=== PATIENT | female | born 1955 | race Caucasian/White ===

== ENCOUNTER → 2017-02-25 | Outpatient (CLI) | payer BC ==
--- NOTE | 2017-02-25 15:30 | BD ---
EXAMINATION TYPE: MG DEXA axial skeleton. DATE OF EXAM: 02/25/2017 COMPARISON: NONE CLINICAL HISTORY: post menopausal Height: 5'6 Weight: 184 FRAX RISK QUESTIONS: Alcohol (3 or more units per day): no Family History (Parent hip fracture): no Glucocorticoids (More than 3mos): no (Ex: prednisone, prednisolone, methylprednisolone, dexamethasone, and hydrocortisone). History of Fracture in Adulthood: no Secondary Osteoporosis: 1. Type 1 Diabetes: no 2. Hyperthyroidism: no 3. Menopause before 45: no 4. Malnutrition: no 5. Chronic liver disease: no Rheumatoid Arthritis: no Current Tobacco Use: no RISK FACTORS HISTORY OF: Postmenopausal woman: MEDICATIONS: Thyroid Medications: Which medication: Levothyroxine How Lon years Additional Medications: high blood pressure, water pill Additional History: EXAM MEASUREMENTS: Bone mineral densitometry was performed using the [email or web address]. Bone mineral density as measured about the Lumbar spine is: ----- L1-L4(G/cm2): 1.087 T Score Values are as follows: ----- L2: -1.4 ----- L3: -0.8 ----- L4: 0.2 ----- L1-L4:-0.8 Bone mineral density about the R hip (g/cm2): 0.877 Bone mineral density about the L hip (g/cm2): 0.819 T Score values are as follows: -----R Neck: -1.2 -----L Neck: -1.6 -----R Total: -0.1 -----L Total: -0.6 IMPRESSION: Osteopenia (T Score between -2.5 and -1 as noted by T score values: At the femoral neck level in both hips and 2 consecutive levels in the low back. There is slightly increased risk of fracture and the patient may be considered for treatment. Re-Screen 2-5 years. NOTE: T-SCORE=SD OF THE YOUNG ADULT MEAN.
--- NOTE | 2017-02-25 16:46 | WWHP ---
[facility] - HISTORY AND PHYSICAL CHIEF COMPLAINT: The patient is here for her routine gynecologic exam and mammogram. HPI: This is a 61-year-old G4, P3-0-1-3 with an LMP of 2006. The patient is without gynecologic complaints and denies any postmenopausal bleeding. PAST MEDICAL HISTORY: Hypothyroidism, hypertension, gastroesophageal reflux disease and seasonal allergies. MEDICATIONS: Highs are 25/100 one daily, levothyroxine 125 mcg daily, Zantac 150 mg b.i.d. ALLERGIES: To PENICILLIN, which caused swelling and pruritus. PAST SURGICAL HISTORY: section x3. D and C in the past, colonoscopy 2016 and this was her third one. She has also had several upper endoscopies in the past. 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 SOCIAL HISTORY: She quit smoking in her 20s. She denies alcohol and drug use. She has been since 1979 and has been caring for her father in law who lives with her. She also watches 2 of her grand children 3 days a week. REVIEW OF SYSTEMS: She has lost about 13 pounds over the last year. She denies respiratory, cardiac or GI problems. PHYSICAL EXAM: Blood pressure 110/63, height 5 feet 6 inches, weight 186 pounds, temperature 96.1, pulse 83. This is a well-developed, well-nourished, white female, who is alert and oriented x3, in no acute distress. HEENT is within normal limits. Neck supple without mass or thyromegaly. Chest and lungs clear to auscultation. HEART: Regular rate and rhythm. Breasts are without mass or discharge. Axillary exam is negative for adenopathy. Back negative for CVA tenderness. ABDOMEN: Soft, nontender, without palpable masses. Pelvic exam normal external genitalia with mild atrophy. Cervix and vagina reveals mild to moderate atrophy without lesions. Cervix is nearly flush with the back of the vagina consistent with atrophy. There is no unusual discharge. There is a small grade 2 rectocele which is stable. The uterus is mid position, nongravid size and nontender. There are no palpable adnexal masses or tenderness. Rectovaginal exam is negative for mass or tenderness and is negative for occult blood. Extremities nontender. IMPRESSION: 61-year-old menopausal female, female with an asymptomatic stable grade 2 rectocele. PLAN: 1. Pap smear was deferred since she had a normal 1 last year. 2. Self breast examination was discussed. 3. Mammogram will be done today. 4. Osteoporosis prevention was discussed. Bone density screening will be done today. 5. She will return in 1 year. MMJOSHUAL / IJN: [id number] /
--- NOTE | 2017-02-27 08:48 | MM ---
Reason for exam: screening (asymptomatic). Last mammogram was performed 1 year and 7 months ago. History: Patient is postmenopausal. Physical Findings: A clinical breast exam by your physician is recommended on an annual basis and results should be correlated with mammographic findings. MG Screening Mammo w CAD Bilateral CC and MLO view(s) were taken. Prior study comparison: August 09, 2015, bilateral MG screening mammo w CAD. April 25, 2014, bilateral MG screening mammo w CAD. There are scattered fibroglandular densities. No significant changes when compared with prior studies. ASSESSMENT: Negative, BI-RAD 1 RECOMMENDATION: Routine screening mammogram of both breasts in 1 year.
== END | disposition home or self-care (01) ==
LOC: WWCWWP 13:46
PROVIDERS: ATTEND Obstetrics & Gynecology
DX: Z12.31 Encounter for screening mammogram for malignant neoplasm of breast (principal); M85.89 Other specified disorders of bone density and structure, multiple sites; Z78.0 Asymptomatic menopausal state
CPT/HCPCS: 77080; G0202

== ENCOUNTER → 2018-06-30 | Outpatient (CLI) | payer BC ==
[2018-06-30 12:54] VITALS: BP 128/81; PULSE 76; RESP 18; TEMP 97.7; BMI 30.3
--- NOTE | 2018-06-30 13:22 | P.HPOB ---
History of Present Illness H&P Date: 06/30/18 Chief Complaint: The patient is here for her routine gynecologic exam and mammogram. This is a 63-year-old with an LMP of 2006. The patient is without gynecologic complaints and denies any postmenopausal bleeding. Review of Systems She has gained 2 pounds over the last year. Respiratory: she is getting over a sinus infection and has been taking antibiotics for this. She denies cardiac or G.I. problems. Past Medical History Past Medical History: GERD/Reflux, Hypertension, Thyroid Disorder (Hypothyroid) Additional Past Medical History / Comment(s): Seasonal allergies. Osteopenia. PAST PHARMACY CUSTOMER CARE SPECIALIST HISTORY: She has no history of STDs. History of Any Multi-Drug Resistant Organisms: None Reported Past Surgical History: Section (x3) Additional Past Surgical History / Comment(s): C-SEC X 3. D&C X 2. Colonoscopy 2016 (3rd). Multiple upper endoscopies. Past Anesthesia/Blood Transfusion Reactions: Motion Sickness Past Psychological History: No Psychological Hx Reported Smoking Status: Former smoker (Quit in her 20s) Past Alcohol Use History: None Reported Additional Past Alcohol Use History / Comment(s): QUIT SMOKING 34 YRS AGO Past Drug Use History: None Reported Additional History: She has been since 1979. She does care for her hisczc-ck-rap who lives with her. - Past Family History Mother Family Medical History: No Reported History, Neurologic Disorder (Multiple sclerosis) Father Family Medical History: Congestive Heart Failure (CHF) Medications and Allergies Home Medications Medication Instructions Recorded Confirmed Type Omeprazole [PriLOSEC] 20 mg PO AC-BRKFST 06/20/14 06/30/18 History Cetirizine HCl [Zyrtec] 10 mg PO DAILY 03/20/16 06/30/18 History Levothyroxine Sodium 125 mcg PO DAILY 03/20/16 06/30/18 History Losartan/Hydrochlorothiazide 1 each PO DAILY 03/20/16 06/30/18 History [Losartan-Hctz 100-25 mg Tab] Allergies Allergy/AdvReac Type Severity Reaction Status Date / Time Penicillins Allergy Itching Verified 06/30/18 12:55 Exam Vital Signs Temp Pulse Resp BP Pulse Ox 06/30/18 12:43 97.7 F 76 18 128/81 98 Intake and Output 06/29/18 06/30/18 06/30/18 22:59 06:59 14:59 Other: Weight 85.275 kg Height 5'6", weight 188 pounds, BMI 30.3. This is a well-developed well-nourished white female who is alert and oriented times 3 in no acute distress. HEENT: Within normal limits. NECK: Supple without mass or thyromegaly. CHEST AND LUNGS: Clear to auscultation. HEART: Regular rate and rhythm. BREASTS: Are without mass or discharge. AXILLARY EXAM: Negative for adenopathy. BACK: Negative for CVA tenderness. ABDOMEN: Soft, nontender, without palpable masses. PELVIC EXAM: Normal external genitalia with mild atrophy. Cervix and vagina appear normal with mild to moderate atrophy. There is no unusual discharge. There is a stable grade 2 rectocele. The uterus is midposition, nongravid size and nontender. There are no palpable adnexal masses or tenderness. RECTAL EXAM: rectovaginal exam is negative for mass or tenderness and is negative for occult blood and does confirm a small rectocele. EXTREMITIES: Nontender. IMPRESSION: 1. 63 year old menopausal female with stable grade 2 asymptomatic rectocele. Otherwise unremarkable gynecologic exam. 2. History of osteopenia. PLAN: 1. Pap smear was performed. 2. Self breast awareness was discussed with the patient. 3. Screening mammogram will be done today. 4. Osteoporosis prevention was discussed. I have stressed the importance of adequate calcium, vitamin D and regular exercise. Recommended amounts of calcium and vitamin D were also discussed. Her last bone density test was done on 02/25/2017. We will plan on repeating this in one year. 5. She will return in one year.
--- NOTE | 2018-07-01 10:06 | MM ---
Reason for exam: screening (asymptomatic). Last mammogram was performed 1 year and 4 months ago. History: Patient is postmenopausal. Physical Findings: A clinical breast exam by your physician is recommended on an annual basis and results should be correlated with mammographic findings. MG Screening Mammo w CAD Bilateral CC and MLO view(s) were taken. Prior study comparison: February 25, 2017, bilateral MG screening mammo w CAD. August 09, 2015, bilateral MG screening mammo w CAD. There are scattered fibroglandular densities. There is no discrete abnormality. No significant changes when compared with prior studies. ASSESSMENT: Negative, BI-RAD 1 RECOMMENDATION: Routine screening mammogram of both breasts in 1 year.
== END | disposition home or self-care (01) ==
LOC: WWCWWP 12:28
PROVIDERS: ATTEND Obstetrics & Gynecology
DX: Z12.31 Encounter for screening mammogram for malignant neoplasm of breast (principal)
CPT/HCPCS: 77067

== ENCOUNTER → 2021-03-30 | Outpatient (CLI) | payer MEDICARE, BC ==
--- NOTE | 2021-03-30 14:54 | US ---
EXAMINATION TYPE: US carotid duplex BILAT DATE OF EXAM: 03/30/2021 COMPARISON: NONE CLINICAL HISTORY: R42 DIZZINESS,I10 ESSENTIAL HYPORTENSION. HTN, DM EXAM MEASUREMENTS: RIGHT: Peak Systolic Velocity (PSV) cm/sec ----- Right CCA: 77.9 ----- Right ICA: 107.4 ----- Right ECA: 129.2 ICA/CCA ratio: 1.4 RIGHT: End Diastole cm/sec ----- Right CCA: 27.0 ----- Right ICA: 40.5 ----- Right ECA: 27.5 LEFT: Peak Systolic Velocity (PSV) cm/sec ----- Left CCA: 85.6 ----- Left ICA: 121.0 ----- Left ECA: 111.3 ICA/CCA ratio: 1.4 LEFT: End Diastole cm/sec ----- Left CCA: 26.3 ----- Left ICA: 46.7 ----- Left ECA: 24.1 VERTEBRALS (direction of flow): Right Vertebral: Antegrade Left Vertebral: Antegrade Rhythm: Normal Mild atherosclerotic IMPRESSION: No sonographic evidence for hemodynamically significant stenosis bilateral carotid arteries. Criteria for Assigning % of Stenosis / Diameter reduction (Estimation based on the indirect measurements of the internal carotid artery velocities (ICA PSV). 1. Normal (no stenosis)=ICA PSV < 125 cm/s: ratio < 2.0: ICA EDV<40 cm/s. 2. Less than 50% stenosis=ICA PSV < 125 cm/s: ratio < 2.0: ICA EDV<40 cm/s. 3. 50 to 69% stenosis=ICA PSV of 125 to 230 cm/s: ration 2.0 ? 4.0: ICA EDV 40-100 cm/s. 4. Greater than 70% stenosis to near occlusion= ICA PSV > 230 cm/s: ratio > 4.0: ICA EDV > 100 cm/s. 5. Near occlusion= ICA PSV velocities may be low or undetectable: variable ratio and ICA EDV. 6. Total occlusion=unable to detect flow.
--- NOTE | 2021-03-30 18:00 | ECHOF ---
Referral Reason:I10 HTN, R42 Dizziness/giddiness MEASUREMENTS -------- HEIGHT: 167.6 cm WEIGHT: 87.1 kg BP: RVIDd: 3.6 cm (< 3.3) IVSd: 1.2 cm (0.6 - 1.1) LVIDd: 2.9 cm (3.9 - 5.3) LVPWd: 1.6 cm (0.6 - 1.1) IVSs: 2.0 cm LVIDs: 1.8 cm LVPWs: 2.3 cm LAESV Index (A-L): 29.42 ml/m Ao Diam: 3.0 cm (2.0 - 3.7) AV Cusp: 1.5 cm (1.5 - 2.6) LA Diam: 3.3 cm (2.7 - 3.8) MV EXCURSION: 12.842 mm (> 18.000) MV EF SLOPE: 34 mm/s (70 - 150) EPSS: 0.3 cm MV E Jonathon: 1.16 m/s MV DecT: 198 ms MV A Jonathon: 1.42 m/s MV E/A Ratio: 0.81 AV maxP.97 mmHg AV meanP.18 mmHg RAP: 5.00 mmHg RVSP: 44.85 mmHg FINDINGS -------- Sinus rhythm. This was a technically adequate study. The left ventricular size is normal. There is moderate concentric left ventricular hypertrophy. O verall left ventricular systolic function is normal with, an EF between 55 - 60 %. Normal LAP Grad e 1 Diastolic Dysfunction. The right ventricle is mildly enlarged. Normal LA size by volume 22+/-6 ml/m2. The right atrial size is normal. There is mild aortic valve sclerosis. Peak/mean gradient across the Aortic Valve is 18.97mmHg / 10. 18mmHg. Moderate mitral annular calcification present. Mild mitral regurgitation is present. The tricuspid valve appears structurally normal. Mild tricuspid regurgitation present. There is m ild pulmonary hypertension. The right ventricular systolic pressure, as measured by Doppler, is 44. 85mmHg. There is no pulmonic regurgitation present. The aortic root size is normal. Normal inferior vena cava with normal inspiratory collapse consistent with estimated right atrial pre ssure of 5 mmHg. There is no pericardial effusion. CONCLUSIONS -------- 1. There is moderate concentric left ventricular hypertrophy. 2. Overall left ventricular systolic function is normal with, an EF between 55 - 60 %. 3. Normal LAP Grade 1 Diastolic Dysfunction. 4. The right ventricle is mildly enlarged. 5. Normal LA size by volume 22+/-6 ml/m2. 6. There is mild aortic valve sclerosis. 7. Peak/mean gradient across the Aortic Valve is 18.97mmHg / 10.18mmHg. 8. Moderate mitral annular calcification present. 9. Mild mitral regurgitation is present. 10. Mild tricuspid regurgitation present. 11. There is mild pulmonary hypertension. 12. There is no pericardial effusion. [employer] SUPERVISOR: Chloe Osei RDCS
== END | disposition home or self-care (01) ==
LOC: RADECHMAIN 13:32
PROVIDERS: ATTEND Internal Medicine
DX: I08.3 Combined rheumatic disorders of mitral, aortic and tricuspid valves (principal); R42 Dizziness and giddiness; I27.20 Pulmonary hypertension, unspecified; I10 Essential (primary) hypertension; E11.9 Type 2 diabetes mellitus without complications
CPT/HCPCS: 93306; 93880

== ENCOUNTER → 2021-09-19 | Outpatient (CLI) | payer MEDICARE, BC ==
[2021-09-19 10:03] VITALS: BP 135/84; PULSE 75; RESP 17; TEMP 98.2
--- NOTE | 2021-09-19 10:48 | P.HPOB ---
History of Present Illness H&P Date: 09/19/21 Chief Complaint: The patient is here for her routine gynecologic exam and ma mmogram. This is a 66-year-old 013 with an LMP of 2006. The patient is without gynecologic complaints and denies any postmenopausal bleeding. Review of Systems The patient has gained 4 pounds over the last 3 years. She denies respiratory, cardiac, or G.I. problems. Past Medical History Past Medical History: GERD/Reflux, Hypertension, Thyroid Disorder Additional Past Medical History / Comment(s): Seasonal allergies. Osteopenia. 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 History of Any Multi-Drug Resistant Organisms: None Reported Past Surgical History: Section Additional Past Surgical History / Comment(s): C-SEC X 3. D&C X 2. Colonoscopy 2016 (next after 10y). Multiple upper endoscopies. Past Anesthesia/Blood Transfusion Reactions: Motion Sickness Past Psychological History: No Psychological Hx Reported Smoking Status: Former smoker Past Alcohol Use History: Rare Additional Past Alcohol Use History / Comment(s): QUIT SMOKING in her 20s. Past Drug Use History: None Reported Additional History: She has been since 1979. She is retired. - Past Family History Mother Family Medical History: No Reported History, Neurologic Disorder Father Family Medical History: Congestive Heart Failure (CHF) Medications and Allergies Home Medications Medication Instructions Recorded Confirmed Type Omeprazole [PriLOSEC] 20 mg PO AC-BRKFST 06/20/14 09/19/21 History Cetirizine HCl [Zyrtec] 10 mg PO DAILY 03/20/16 09/19/21 History Levothyroxine Sodium 125 mcg PO DAILY 03/20/16 09/19/21 History Losartan/Hydrochlorothiazide 1 each PO DAILY 03/20/16 09/19/21 History [Losartan-Hctz 100-25 mg Tab] Allergies Allergy/AdvReac Type Severity Reaction Status Date / Time Penicillins Allergy Itching Verified 09/19/21 09:28 Exam Vital Signs Temp Pulse Resp BP Pulse Ox 09/19/21 10:00 98.2 F 75 17 135/84 98 Intake and Output 09/18/21 09/19/21 09/19/21 22:59 06:59 14:59 Other: Weight 87.09 kg Height 5 feet 5 inches, weight 192 pounds, BMI 32.0. This is a well-developed well-nourished white female who is alert and oriented times 3 in no acute distress. HEENT: Within normal limits. NECK: Supple without mass or thyromegaly. CHEST AND LUNGS: Clear to auscultation. HEART: Regular rate and rhythm. BREASTS: Are without mass or discharge. There is a benign-appearing mole on the left breast areola at the 2 o'clock position measuring 8 x 5 mm. AXILLARY EXAM: Negative for adenopathy. BACK: Negative for CVA tenderness. ABDOMEN: Soft, nontender, without palpable masses. There is a low vertical skin incision which has slight pallor in the center of the scar down the midline. The patient states it has been feeling a little irritated when things rubbed against it. PELVIC EXAM: External genitalia reveals mild atrophy with a benign-appearing r ight labia majora inclusion cyst measuring approximate 5 mm which is nontender and noninflamed. Cervix and vagina appear normal with mild atrophy. There is no unusual discharge. There is a stable grade 1-2 rectocele. The uterus is midposition, nongravid size and nontender. There are no palpable adnexal masses or tenderness. RECTAL EXAM: Rectovaginal exam is negative for mass or tenderness and is negative for occult blood. EXTREMITIES: Nontender. IMPRESSION: 1. 66-year-old menopausal female with stable asymptomatic grade 1-2 rectocele. 2. History of osteopenia. PLAN: 1. Pap smear was performed. If this is negative, Pap smears will be discontinued. 2. Self breast awareness was discussed with the patient. We have also discussed symptoms associated with inflammatory breast cancer. 3. Screening mammogram will be done today. 4. Osteoporosis prevention was discussed. I have stressed the importance of adequate calcium, vitamin D and regular exercise. Recommended amounts of calc ium and vitamin D were also discussed. I recommended bone density test since her last one was in 2016. The order slip was given to the patient for this. 5. She has completed her Covid vaccination series and has received a booster. 6. She was advised to return in one year for her annual well woman exam.
--- NOTE | 2021-09-21 10:44 | MM ---
Reason for exam: screening (asymptomatic). Last mammogram was performed 3 years and 3 months ago. History: Patient is postmenopausal. Physical Findings: A clinical breast exam by your physician is recommended on an annual basis and results should be correlated with mammographic findings. MG Screening Mammo w CAD Bilateral CC and MLO view(s) were taken. Prior study comparison: June 30, 2018, bilateral MG screening mammo w CAD. February 25, 2017, bilateral MG screening mammo w CAD. There are scattered fibroglandular densities. There is no discrete abnormality. No significant changes when compared with prior studies. ASSESSMENT: Negative, BI-RAD 1 RECOMMENDATION: Routine screening mammogram of both breasts in 1 year.
== END ==
LOC: WWCWWP 09:17
PROVIDERS: ATTEND Obstetrics & Gynecology
DX: Z12.31 Encounter for screening mammogram for malignant neoplasm of breast (principal); Z01.419 Encounter for gynecological examination (general) (routine) without abnormal findings; I10 Essential (primary) hypertension; Z87.39 Personal history of other diseases of the musculoskeletal system and connective tissue; Z87.891 Personal history of nicotine dependence; Z78.0 Asymptomatic menopausal state; Z88.0 Allergy status to penicillin; K21.9 Gastro-esophageal reflux disease without esophagitis
CPT/HCPCS: 77067

== ENCOUNTER → 2021-10-30 | Outpatient (CLI) | payer MEDICARE, BC ==
--- NOTE | 2021-10-30 19:05 | BD ---
EXAMINATION TYPE: Axial Bone Density DATE OF EXAM: 10/30/2021 CLINICAL HISTORY: 66 years year old Female. ICD-10 CODE: Z78.0 Post menopausal status Height: 5 fFT 5 IN Weight: 192 FRAX RISK QUESTIONS: Alcohol (3 or more units per day): NO Family History (Parent hip fracture): NO Glucocorticoids (More than 3mos): NO (Ex: prednisone, prednisolone, methylprednisolone, dexamethasone, and hydrocortisone). History of Fracture in Adulthood: NO Secondary Osteoporosis: 1. Type 1 Diabetes: NO 2. Hyperthyroidism: NO 3. Menopause before 45: NO 4. Malnutrition: NO 5. Chronic liver disease: NO Rheumatoid Arthritis: NO Current Tobacco Use: NO RISK FACTORS HISTORY OF: Surgery to Spine/Hip(right/left)/Wrist (right/left): NO Family History of Osteoporosis: YES Active: YES Diet low in dairy products/other sources of calcium: NO Postmenopausal woman: YES Take estrogen and/or progesterone medications: NO Lost more than 2 inches in height since high school: YES Frequent falls: NO Poor Health: GOOD Hyperparathyroidism: NO Adrenal Insufficiency: NO MEDICATIONS: Thyroid Medications: YES Which medication: LEVOTHYROXINE How Lon YEARS Additional Medications: LEVOTHYROXINE, LOSARTAN, HYZAAR, PRILOSEC Additional History: EXAM MEASUREMENTS: Bone mineral densitometry was performed using the [employer] System. Bone mineral density as measured about the Lumbar spine is: ----- L1-L4(G/cm2): 1.106 T Score Values are as follows: ----- L1: -1.7 ----- L2: -1.7 ----- L3: 0.1 ----- L4: 0.6 ----- L1-L4: -0.6 Bone mineral density has: INCREASED 3.2 % since study of: 2017 Bone mineral density about the R hip (g/cm2): 0.889 Bone mineral density about the L hip (g/cm2): 0.802 T Score values are as follows: -----R Neck: -1.1 -----L Neck: -1.7 -----R Total: -0.7 -----L Total: -0.8 Bone mineral density has: DECREASED -4.7 % since study of: 2017 FRAX%s: The graph provided illustrates a 3.8 % chance for a major osteoporotic fx and a 0.8 % chance for the hips probability for fx in 10 years time. IMPRESSION: Osteopenia (T Score between -2.5 and -1). There is slightly increased risk of fracture and the patient may be considered for treatment. Re-Screen 2-5 years. NOTE: T-SCORE=SD OF THE YOUNG ADULT MEAN.
== END | disposition home or self-care (01) ==
LOC: RADBDWWP 09:53
PROVIDERS: ATTEND Obstetrics & Gynecology
DX: Z13.820 Encounter for screening for osteoporosis (principal); M85.89 Other specified disorders of bone density and structure, multiple sites; Z78.0 Asymptomatic menopausal state
CPT/HCPCS: 77080

== ENCOUNTER → 2023-09-30 | Outpatient (CLI) | payer MEDICARE, BC ==
[2023-09-30 13:06] VITALS: BP 129/76; PULSE 75; RESP 16; TEMP 98.2
--- NOTE | 2023-09-30 13:28 | P.HPOB ---
History of Present Illness H&P Date: 09/30/23 Chief Complaint: The patient is here for her routine gynecologic exam and ma mmogram. This is a 68-year-old -0-1-3 with an LMP of 2006. The patient is without gynecologic complaints. She denies any problems related to her known rectocele. Review of Systems The patient has lost 6 pounds over the last year. She denies respiratory, cardiac, or G.I. problems. Past Medical History Past Medical History: GERD/Reflux, Hypertension, Thyroid Disorder Additional Past Medical History / Comment(s): Seasonal allergies. Osteopenia. 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 History of Any Multi-Drug Resistant Organisms: None Reported Past Surgical History: Section Additional Past Surgical History / Comment(s): C-SEC X 3. D&C X 2. Colonoscopy with upper endoscopy 2021 (next [id number]). Multiple upper endoscopies. Past Anesthesia/Blood Transfusion Reactions: Motion Sickness Past Psychological History: No Psychological Hx Reported Smoking Status: Former smoker Past Alcohol Use History: Rare (About 2 drinks per year.) Additional Past Alcohol Use History / Comment(s): QUIT SMOKING in her 20s. Past Drug Use History: None Reported Additional History: She has been since 1979 and is sexually active. She is retired. - Past Family History Mother Family Medical History: No Reported History, Neurologic Disorder Father Family Medical History: Congestive Heart Failure (CHF) Medications and Allergies Home Medications Medication Instructions Recorded Confirmed Type Omeprazole [PriLOSEC] 20 mg PO AC-BRKFST 06/20/14 09/30/23 History Cetirizine HCl [Zyrtec] 10 mg PO DAILY 03/20/16 09/30/23 History Levothyroxine Sodium 125 mcg PO DAILY 03/20/16 09/30/23 History Losartan/Hydrochlorothiazide 1 each PO DAILY 03/20/16 09/30/23 History [Losartan-Hctz 100-25 mg Tab] Allergies Allergy/AdvReac Type Severity Reaction Status Date / Time Penicillins Allergy Itching Verified 09/30/23 13:02 Exam Vital Signs Temp Pulse Resp BP Pulse Ox 09/30/23 13:03 98.2 F 75 16 129/76 97 Intake and Output 09/29/23 09/30/23 09/30/23 22:59 06:59 14:59 Other: Weight 82.1 kg Height 5 feet 5 inches, weight 181 pounds, BMI 30.1. This is a well-developed well-nourished white female who is alert and oriented times 3 in no acute distress. HEENT: Within normal limits. NECK: Supple without mass or thyromegaly. CHEST AND LUNGS: Clear to auscultation. HEART: Regular rate and rhythm. BREASTS: Are without mass or discharge. AXILLARY EXAM: Negative for adenopathy. BACK: Negative for CVA tenderness. ABDOMEN: Soft, nontender, without palpable masses. PELVIC EXAM: Normal external genitalia with mild atrophy. Cervix and vagina appear normal with mild atrophy. There is no unusual discharge. There is a stable grade 2 rectocele. The overlying mucosa is without ulceration or thickening. The uterus is midposition, nongravid size and nontender. There are no palpable adnexal masses or tenderness. RECTAL EXAM: Rectovaginal exam is negative for mass or tenderness and is negative for occult blood. EXTREMITIES: Nontender. IMPRESSION: 1. 68-year-old menopausal female with stable asymptomatic grade 2 rectocele. 2. History of osteopenia. PLAN: 1. Pap smears have been discontinued. 2. Self breast awareness was discussed with the patient. We have also discussed symptoms associated with inflammatory breast cancer. 3. Screening mammogram was done today. 4. Osteoporosis prevention was discussed. I have stressed the importance of adequate calcium, vitamin D and regular exercise. Recommended amounts of calcium and vitamin D were also discussed. We will plan on repeating the bone density test in 1 year. 5. She was advised to return in one year for her annual well woman exam.
--- NOTE | 2023-10-01 18:54 | MM ---
Reason for Exam: Screening (asymptomatic). Last screening mammogram was performed 12 month(s) ago. Patient History: Menarche at age 12. First Full-Term at age 17. Postmenopausal. Patient has history of breast feeding. Risk Values: Razia 5 year model risk: 1.2%. NCI Lifetime model risk: 4.0%. Prior Study Comparison: 06/30/2018 Bilateral Screening Mammogram, [facility]. 09/19/2021 Bilateral Screening Mammogram, [facility]. 09/24/2022 Bilateral MG screening mammo w CAD, [facility]. Tissue Density: There are scattered areas of fibroglandular density. Findings: Analyzed By CAD. There is no suspicious group of microcalcifications or new suspicious mass in either breast. Overall Assessment: Negative, BI-RAD 1 Management: Screening Mammogram of both breasts in 1 year. . Patient should continue monthly self-breast exams. A clinical breast exam by your physician is recommended on an annual basis. This exam should not preclude additional follow-up of suspicious palpable abnormalities. Note on Razia scores and lifetime risk: 1. A Razia score greater than 3% is considered moderate risk. If this is the case, consider specialist referral to assess eligibility for a risk reducing agent. 2. If overall lifetime risk for the development of breast cancer is 20% or higher, the patient may qualify for future screening with alternating mammogram and breast MRI. Electronically signed and approved by: Estephanie Torrez M.D. Radiologist
== END ==
LOC: WWCWWP 12:23
PROVIDERS: ATTEND Obstetrics & Gynecology
DX: Z12.31 Encounter for screening mammogram for malignant neoplasm of breast (principal); N81.6 Rectocele; M85.80 Other specified disorders of bone density and structure, unspecified site; Z78.0 Asymptomatic menopausal state; Z88.0 Allergy status to penicillin; Z87.891 Personal history of nicotine dependence
CPT/HCPCS: 77063; 77067

== ENCOUNTER → 2024-10-26 | Outpatient (CLI) | payer MEDICARE, BC ==
--- NOTE | 2024-10-26 15:01 | BD ---
EXAMINATION TYPE: Axial Bone Density DATE OF EXAM: 10/26/2024 CLINICAL HISTORY: 69 years old Female. ICD-10 CODE: Z78.0 POSTMENOPAUSAL , Additional History: Height: 5 ft 5 in Weight: 180 FRAX RISK QUESTIONS: Alcohol (3 or more units per day): no Family History (Parent hip fracture): no Glucocorticoids (More than 3mos): no (Ex: prednisone, prednisolone, methylprednisolone, dexamethasone, and hydrocortisone). History of Fracture in Adulthood: yes Secondary Osteoporosis: 1. Type 1 Diabetes: no 2. Hyperthyroidism: no 3. Menopause before 45: no 4. Malnutrition: no 5. Chronic liver disease: no Rheumatoid Arthritis: no Current Tobacco Use: no RISK FACTORS HISTORY OF: Surgery to Spine/Hip(right/left)/Wrist (right/left): no MEDICATIONS: Thyroid Medications: yes Which medication: levothyroxine How Lon years Osteoporosis Medications: none EXAM MEASUREMENTS: Bone mineral densitometry was performed using the [employer] System. Bone mineral density as measured about the Lumbar spine is: ----- L1-L4(G/cm2): 1.067 T Score Values are as follows: ----- L1: -1.8 ----- L2: -1.7 ----- L3: -0.5 ----- L4: 0.0 ----- L1-L4: -0.9 Z Score Values are as follows: ----- L1: -0.7 ----- L2: -0.6 ----- L3: 0.6 ----- L4: 1.1 ----- L1-L4: 0.2 Bone mineral density has: decreased -3.5 % since study of: 2021 Bone mineral density about the R hip (g/cm2): 0.890 Bone mineral density about the L hip (g/cm2): 0.821 T Score values are as follows: -----R Neck: -1.1 -----L Neck: -1.6 -----R Total: -0.5 -----L Total: -1.1 Z Score values are as follows: -----R Neck: 0.2 -----L Neck: -0.3 -----R Total: 0.5 -----L Total: -0.1 Bone mineral density has: decreased -1.1 % since study of: 2021 FRAX%s: The graph provided illustrates a 15.5 % chance for a major osteoporotic fx and a 2.2 % chance for the hips probability for fx in 10 years time. IMPRESSION: Osteopenia (T Score between -2.5 and -1). There is slightly increased risk of fracture and the patient may be considered for treatment. Re-Screen 2-5 years. NOTE: T-SCORE=SD OF THE YOUNG ADULT MEAN. [facility], , 10/26/2024 2:59 PM
[2024-10-26 15:09] VITALS: BP 145/86; PULSE 62; RESP 17; TEMP 98.3
--- NOTE | 2024-10-26 15:13 | MM ---
Reason for Exam: Screening (asymptomatic). Last mammogram was performed 1 year(s) and 1 month(s) ago. Patient History: Menarche at age 12. First Full-Term at age 17. Postmenopausal. Patient has history of breast feeding. Risk Values: Razia 5 year model risk: 1.2%. NCI Lifetime model risk: 3.9%. Prior Study Comparison: 09/19/2021 Bilateral Screening Mammogram, [facility]. 09/24/2022 Bilateral MG screening mammo w CAD, [facility]. 09/30/2023 Bilateral MG 3D screening mammo w/cad, [facility]. Tissue Density: There are scattered areas of fibroglandular density. Findings: Analyzed By CAD. Benign-appearing vascular calcification bilaterally is redemonstrated. There is no suspicious new group of microcalcifications or new suspicious mass in either breast. Overall Assessment: Negative, BI-RAD 1 Management: Screening Mammogram of both breasts in 1 year. . Patient should continue monthly self-breast exams. A clinical breast exam by your physician is recommended on an annual basis. This exam should not preclude additional follow-up of suspicious palpable abnormalities. Note on Razia scores and lifetime risk: 1. A Razia score greater than 3% is considered moderate risk. If this is the case, consider specialist referral to assess eligibility for a risk reducing agent. 2. If overall lifetime risk for the development of breast cancer is 20% or higher, the patient may qualify for future screening with alternating mammogram and breast MRI. [facility], , 10/26/2024 3:09 PM. Electronically signed and approved by: Jasen Stephenson M.D.
--- NOTE | 2024-10-26 16:14 | P.HPOB ---
History of Present Illness H&P Date: 10/26/24 Chief Complaint: The patient is here for her routine gynecologic exam and ma mmogram. This is a 69-year-old -0-1-3 with an LMP of 2006. The patient is without gynecologic complaints. She denies any significant Angelita problems with her known rectocele. She states she has been using her 's blood pressure cuff which indicates she has some irregular beats. She denies any faint feeling or lightheadedness. She also denies feeling palpitations. Review of Systems Her weight has been stable. She denies respiratory problems cardiac: Her blood pressure cuff has read that she is having irregular beats, but she denies significant symptoms from this GI: Occasional difficulty swallowing. Past Medical History Past Medical History: GERD/Reflux, Hypertension, Thyroid Disorder Additional Past Medical History / Comment(s): Seasonal allergies. Osteopenia. 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 History of Any Multi-Drug Resistant Organisms: None Reported Past Surgical History: Section Additional Past Surgical History / Comment(s): C-SEC X 3. D&C X 2. Colonoscopy with upper endoscopy 2021 (next [id number]). Multiple upper endoscopies. Past Anesthesia/Blood Transfusion Reactions: Motion Sickness Past Psychological History: No Psychological Hx Reported Smoking Status: Former smoker Past Alcohol Use History: Rare (Drinks per year.) Additional Past Alcohol Use History / Comment(s): QUIT SMOKING in her 20s. Past Drug Use History: None Reported Additional History: She has been since 1979 and is infrequently sexually active. She is retired. - Past Family History Mother Family Medical History: No Reported History, Neurologic Disorder Father Family Medical History: Congestive Heart Failure (CHF) Medications and Allergies Home Medications Medication Instructions Recorded Confirmed Type Omeprazole [PriLOSEC] 20 mg PO AC-BRKFST 06/20/14 10/26/24 History Cetirizine HCl [Zyrtec] 10 mg PO DAILY 03/20/16 10/26/24 History Levothyroxine Sodium 125 mcg PO DAILY 03/20/16 10/26/24 History Losartan/Hydrochlorothiazide 1 each PO DAILY 03/20/16 10/26/24 History [Losartan-Hctz 100-25 mg Tab] Allergies Allergy/AdvReac Type Severity Reaction Status Date / Time Penicillins Allergy Itching Verified 10/26/24 15:06 Exam Vital Signs Temp Pulse Resp BP Pulse Ox 10/26/24 15:07 98.3 F 62 17 145/86 95 Intake and Output 10/26/24 10/26/24 10/26/24 06:59 14:59 22:59 Other: Weight 82.1 kg Height 5 feet 5 inches, weight 181 pounds, BMI 30.1. This is a well-developed well-nourished white female who is alert and oriented times 3 in no acute distress. HEENT: Within normal limits. NECK: Supple without mass or thyromegaly. CHEST AND LUNGS: Clear to auscultation. HEART: Normal rate with an irregularly irregular rhythm. BREASTS: Are without mass or discharge. AXILLARY EXAM: Negative for adenopathy. BACK: Negative for CVA tenderness. ABDOMEN: Soft, nontender, without palpable masses. PELVIC EXAM: Normal external genitalia with mild to moderate atrophy. Cervix and vagina appear normal with mild atrophy. There is no unusual discharge. There is a stable grade 2 rectocele. The uterus is midposition, nongravid size and nontender. There are no palpable adnexal masses or tenderness. RECTAL EXAM: Rectovaginal exam is negative for mass or tenderness and is negative for occult blood. Rectal exam does confirm to grade 2 rectocele. EXTREMITIES: Nontender. There is 2+ lower extremity edema. IMPRESSION: 1. 69-year-old menopausal female with a stable asymptomatic grade 2 rectocele. 2. History of osteopenia. 3. Irregular heartbeat and the patient has not been symptomatic. PLAN: 1. Pap smears have been discontinued. 2. Self breast awareness was discussed with the patient. We have also discussed symptoms associated with inflammatory breast cancer. 3. Screening mammogram was done today and was benign. 4. Recommended that she contact Dr. Candelaria's office as soon as possible to be evaluated for the irregular heartbeat. This is probably gone on for a while since she states this has been detected by her blood pressure cuff. If she is having issues with feeling lightheaded or faint or other cardiac problems, she was instructed to go in through the emergency room. 5. Osteoporosis prevention was discussed. I have stressed the importance of adequate calcium, vitamin D and regular exercise. Recommended amounts of calcium and vitamin D were also discussed. Bone density was done today and continues to show osteopenia. We will plan on repeating this again in 2 to 3 years. 6. The patient was instructed to follow-up with her PCP regarding swallowing difficulties, leg edema, and the irregular heartbeat. 7. She was advised to return in one year for her annual well woman exam.
== END | disposition home or self-care (01) ==
LOC: RADMAMWWP 14:20
PROVIDERS: ATTEND Obstetrics & Gynecology
DX: Z12.31 Encounter for screening mammogram for malignant neoplasm of breast (principal); M85.89 Other specified disorders of bone density and structure, multiple sites; R92.323 Mammographic fibroglandular density, bilateral breasts; R92.1 Mammographic calcification found on diagnostic imaging of breast; Z78.0 Asymptomatic menopausal state
CPT/HCPCS: 77063; 77067; 77080